=== PATIENT | female | born 1950 | race African-American/Black ===

== ENCOUNTER 2020-07-10 14:31 | Inpatient (IN) | payer MEDICARE, BC ==
[~2020-07-10] VITALS: Ht 149.9 cm; Wt 104.0 kg
--- NOTE | 2020-07-10 14:35 | NUR ---
pt bib private ambulance from residence, on 5150 hold, dts, dto. pt on ra 91%. placed the pt on oxygen improved it to 98%. pt easily agitated, confused. er at bedside.
[2020-07-10 15:05] LABS: BASOPHILS % (AUTO) 0.3 % (0.0-2.0); EOSINOPHILS # (AUTO) 0.1 K/uL (0.0-0.7); EOSINOPHILS % (AUTO) 0.6 % (0.0-7.0); HEMATOCRIT 42.3 % (31.2-41.9); LYMPHOCYTES # (AUTO) 1.9 K/uL (20.0-40.0); LYMPHOCYTES % (AUTO) 13.5 % (20.5-51.5); MEAN CORPUSCULAR HEMOGLOBIN 29.5 uug (24.7-32.8); MEAN CORPUSCULAR HGB CONC 33 g/dL (32.3-35.6); MEAN CORPUSCULAR VOLUME 89.2 fL (75.5-95.3); MONOCYTES # (AUTO) 0.8 K/uL (2.0-10.0); MONOCYTES % (AUTO) 5.6 % (0.0-11.0); NEUTROPHILS # (AUTO) 11.2 K/uL (1.8-8.9); PLATELET COUNT (AUTO) 273 K/uL (179-408); RED BLOOD CELL COUNT(AUTO) 4.74 MIL/uL (3.63-4.92)
[2020-07-10] MEDS: ALBUTEROL SULFATE 2.5 MG/3 ML NEBU NEB SCH (15:08)
[2020-07-10] MEDS: IPRATROPIUM BROMIDE 0.5 MG/2.5 ML NEBU NEB SCH (15:08)
[2020-07-10 15:10] LABS: CARBON DIOXIDE 32 mmol/L (21-32); CHLORIDE 97 mmol/L (98-107); CREATININE 1.4 mg/dL (0.6-1.3); GLUCOSE 136 mg/dL (74-106); POTASSIUM 3.3 mmol/L (3.5-5.1); UREA NITROGEN, BLOOD 20 mg/dL (7-18)
[2020-07-10] MEDS ORDERED: ALBUTEROL SULFATE 2.5 MG/3 ML NEBU ONE (15:10)
[2020-07-10] MEDS ORDERED: IPRATROPIUM BROMIDE 0.5 MG/2.5 ML NEBU ONE (15:10)
--- NOTE | 2020-07-10 15:10 | NUR ---
pt yelling, disturbing other pts, trying to walk out the er. comfort measures provided, md aware.
[2020-07-10 15:12] LABS: *BILIRUBIN,URIN NEGATIVE (NEGATIVE); *BLOOD, URINE 3+ (NEGATIVE); *CLARITY,URINE CLOUDY (CLEAR); *COLOR,URINE YELLOW (YELLOW); *KETONES,URINE NEGATIVE (NEGATIVE); *UROBILINOGEN,URINE 0.2 E.U./dl (NORMAL); LEUKOCYTE ESTERASE ,URINE 1+ (NEGATIVE); NITRITE, URINE POSITIVE (NEGATIVE); UGLUCOSE NEGATIVE (NEGATIVE)
[2020-07-10 15:16] LABS: ALANINE AMINOTRANSFERASE 34 U/L (14-59); ALKALINE PHOSPHATASE 124 U/L (50-136); ASPARTATE AMINOTRANSFERASE 58 U/L (15-37); BILIRUBIN,DIRECT 0.1 mg/dL (0.0-0.2); BILIRUBIN,TOTAL 0.4 mg/dL (0.2-1.0); ETHANOL < 3 MG/DL (0-0); TOTAL PROTEIN, SERUM 8.2 g/dL (6.4-8.2)
[2020-07-10 15:17] LABS: ACETAMINOPHEN < 2.0 ug/mL (10-30)
[2020-07-10 15:22] LABS: *AMPHETAMINE, URINE NEGATIVE (NEGATIVE); *CANNABINOID, URINE POSITIVE (NEGATIVE); *COCCAINE, URINE NEGATIVE (NEGATIVE); *OPIATE, URINE NEGATIVE (NEGATIVE); *PHENCYCLIDINE SCREEN,URINE NEGATIVE (NEGATIVE)
[2020-07-10] MEDS ORDERED: OLANZAPINE 10 MG VIAL IM ONE ×2 (15:30→15:31)
[2020-07-10] MEDS ORDERED: HALOPERIDOL LACTATE 5 MG/1 ML VIAL ONE (15:42)
[2020-07-10] MEDS ORDERED: HALOPERIDOL LACTATE 5 MG/1 ML VIAL IM ONE (15:45)
[2020-07-10] MEDS ORDERED: CEFTRIAXONE 1 G VIAL IM ONE (16:00)
--- NOTE | 2020-07-10 16:00 | NUR ---
pt off the nc to see how the pt does without oxygen.
[2020-07-10] MEDS ORDERED: LIDOCAINE HCL 1% 20 ML VIAL ONE (16:01)
[2020-07-10] MEDS ORDERED: CEFTRIAXONE 1 G VIAL ONE (16:01)
--- NOTE | 2020-07-10 16:05 | NUR ---
pt ra sat 96%. Dr. Jaffe medically cleared the pt.
--- NOTE | 2020-07-10 16:30 | NUR ---
PT AMBULATED IN ROOM BACK AND FORTH TO BATHROOM AND BED TO CHAIR.
--- NOTE | 2020-07-10 16:58 | NUR ---
PT IN BED, RESTING.
[2020-07-10 17:00] VITALS: BP 116/59
[2020-07-10] MEDS ORDERED: MAG HYDROX/AL HYDROX/SIMETH 30 ML LIQUID UDC PO PRN (17:30)
[2020-07-10] MEDS ORDERED: LORAZEPAM 0.5 MG TABLET PO PRN (17:30)
[2020-07-10] MEDS ORDERED: ACETAMINOPHEN 325 MG TABLET PO PRN (17:30)
[2020-07-10] MEDS ORDERED: MAGNESIUM HYDROXIDE 30 ML LIQUID UDC PO PRN (17:30)
[2020-07-10 18:16] LABS: BACTERIA,URINE MANY /HPF (NONE SEEN); SQUAMOUS EPITHELIAL CELL,UR MODERATE /HPF (NONE SEEN)
[2020-07-10] MEDS ORDERED: BLOOD SUGAR DIAGNOSTIC 1 EACH STRIP VI ONE (18:30)
--- NOTE | 2020-07-10 18:47 | NUR ---
Received this admission from ER, awake, alert, oriented x 3, drowsy but easily aroused, follows command, with appropriate response. Initially calm but became restless and anxious. Redirected and Ativan po given.
[2020-07-10] MEDS ORDERED: CLONIDINE HCL 0.1 MG TABLET PO PRN (19:45)
[2020-07-10] MEDS ORDERED: DEXTROSE 50% 50 ML DISP.SYRIN IV PRN (19:45)
[2020-07-10 20:35] VITALS: BP 128/65
[2020-07-10] MEDS: BLOOD SUGAR DIAGNOSTIC 1 EACH STRIP VI SCH (21:00)
[2020-07-10] MEDS ORDERED: SULFAMETH/TRIMETH 800/160 MG TABLET PO SCH (21:00)
[2020-07-10] MEDS: ZOLPIDEM 5 MG TABLET PO PRN (21:04)
[2020-07-10] MEDS: NITROFURANTOIN/NITROFURAN MAC 100 MG CAPSULE PO SCH (21:04)
[2020-07-11] MEDS: ALBUTEROL SULFATE 2.5 MG/3 ML NEBU NEB SCH ×4 (02:03→20:03)
[2020-07-11] MEDS: IPRATROPIUM BROMIDE 0.5 MG/2.5 ML NEBU NEB SCH ×4 (02:03→20:03)
--- NOTE | 2020-07-11 05:55 | NUR ---
Patient was asleep in the bed when she was received. Sleep apnea noted. Patient woke up laughing, the yelling for someone, when asked who, the patient stated " They are , they are in my heart" then proceeded to bang on her chest with her hands. Lead Database Administrator was able to redirect and distract patient but unable to engage in any meaningful conversation d/t the patient being confused and labile. At one point, patient was getting up and down frequently from the bed and repetitively asking for her toenails to be trimmed. This patient did take medications and received a breathing treatment for audible wheezing. B/P was normal , HR was slightly elevated which was noted by the Doctor. Total sleep hours are 5.45. Patient is up early and agreeable to take a shower. No acute issues at this time. Continuing to monitor for safety and behavior escalation.
[2020-07-11] MEDS: BLOOD SUGAR DIAGNOSTIC 1 EACH STRIP VI SCH ×4 (06:29→20:06)
[2020-07-11 07:30] VITALS: BP 116/83
[2020-07-11] MEDS: NITROFURANTOIN/NITROFURAN MAC 100 MG CAPSULE PO SCH ×2 (08:14→20:06)
[2020-07-11] MEDS: NICOTINE 14 MG/24HR PATCH TD SCH (08:14)
[2020-07-11 08:16] LABS: BILIRUBIN,TOTAL 0.4 mg/dL (0.2-1.0); CREATININE 1.4 mg/dL (0.6-1.3); POTASSIUM 3.1 mmol/L (3.5-5.1)
[2020-07-11 08:24] LABS: MAGNESIUM 2.8 mg/dL (1.8-2.4); PHOSPHOROUS 3.1 mg/dL (2.5-4.9); THYROID STIMULATING HORMONE 0.774 mIU/mL (0.358-3.740)
[2020-07-11] MEDS: INSULIN REGULAR, HUMAN 300 UNIT/3 ML VIAL SQ PRN ×3 (09:11→20:08)
[2020-07-11] MEDS: LORAZEPAM 1 MG TABLET PO PRN ×2 (09:13→16:10)
[2020-07-11] MEDS ORDERED: POTASSIUM CHLORIDE 20 MEQ TAB.PRT.SR PO ONE (10:00)
[2020-07-11 16:00] VITALS: BP 125/83
[2020-07-11] MEDS: risperiDONE 2 MG TABLET PO SCH (16:10)
--- NOTE | 2020-07-11 18:02 | NUR ---
Patient in bed cooperative upon assessment, engaged in a conversation. After lunch patient started to get anxious while walking in the hallway. She said she wants to call her brother. Telephone is provided to her. All needs met in a timely manner. No s/sx of hyper and hypoglycemia. All due meds given per MD order. No s/sx of distress.
[2020-07-11 19:55] VITALS: BP 121/64
[2020-07-11] MEDS: ZOLPIDEM 5 MG TABLET PO PRN (23:27)
[2020-07-12] MEDS: IPRATROPIUM BROMIDE 0.5 MG/2.5 ML NEBU NEB SCH ×4 (01:34→19:54)
[2020-07-12] MEDS: ALBUTEROL SULFATE 2.5 MG/3 ML NEBU NEB SCH ×4 (01:34→19:54)
[2020-07-12] MEDS: LORAZEPAM 1 MG TABLET PO PRN (02:09)
--- NOTE | 2020-07-12 05:35 | NUR ---
Received patient in bed last night, awake and asking for food. After a short time, patient was up in the mcdaniel pacing the floor with a FWW. Patient has audible wheezing and creative writer noticed that when patient would try to sleep she has such severe sleep apnea , that it constantly would wake the patient up. Total sleep hours were only 3.00 . Respiratory treatments were given 2 times during the shift. Patient seemed groggy and restless throughout the night . B/P 136/80 , pulse was 122 and o2 sat 94% on room air when checked this am. Patients HR has remained high since admission. The doctors are aware. Plan to transfer patient to medical floor for c pap at night if the doctors agree. UA sent to lab this am per order. Patient slept in Yuki chair at the station for close monitoring. Bellman Driver will continue to assess patients status and endorse to the on coming shift.
[2020-07-12 05:54] LABS: *BILIRUBIN,URIN NEGATIVE (NEGATIVE); *CLARITY,URINE CLEAR (CLEAR); *COLOR,URINE YELLOW (YELLOW); *KETONES,URINE NEGATIVE (NEGATIVE); *UROBILINOGEN,URINE 0.2 E.U./dl (NORMAL); LEUKOCYTE ESTERASE ,URINE TRACE (NEGATIVE); NITRITE, URINE NEGATIVE (NEGATIVE); PH,URINE 6.5 (5.0-8.0); UGLUCOSE NEGATIVE (NEGATIVE)
[2020-07-12 06:05] LABS: *BLOOD, URINE TRACE (NEGATIVE)
[2020-07-12 06:08] LABS: BACTERIA,URINE NONE SEEN /HPF (NONE SEEN); SQUAMOUS EPITHELIAL CELL,UR MODERATE /HPF (NONE SEEN); WBC,URINE 0-3 /HPF (0-3)
[2020-07-12 06:08] LABS: *CREATININE,URINE 44.6 mg/dL (30-125); *URINE TOTAL PROTEIN RANDOM 18.8 mg/dL (<150/24HR)
[2020-07-12] MEDS: BLOOD SUGAR DIAGNOSTIC 1 EACH STRIP VI SCH ×4 (06:18→20:24)
[2020-07-12 07:30] VITALS: BP 128/84
--- NOTE | 2020-07-12 07:30 | NUR ---
Patient received in [facility] chair. Pt. was being aggressive, yelling and shouting at staff. She was trying to get out of the chair. Redirected and bargained for more cooperated behavior to be released from chair. The patient complied. Safety precaution implemented . Will continue to monitor.
[2020-07-12 07:52] LABS: BASOPHILS % (AUTO) 0.4 % (0.0-2.0); EOSINOPHILS # (AUTO) 0.5 K/uL (0.0-0.7); EOSINOPHILS % (AUTO) 4.1 % (0.0-7.0); HEMATOCRIT 41.7 % (31.2-41.9); HEMOGLOBIN 13.7 g/dL (10.9-14.3); LYMPHOCYTES # (AUTO) 3.3 K/uL (20.0-40.0); LYMPHOCYTES % (AUTO) 29.2 % (20.5-51.5); MEAN CORPUSCULAR HEMOGLOBIN 29.6 uug (24.7-32.8); MEAN CORPUSCULAR HGB CONC 33 g/dL (32.3-35.6); MEAN CORPUSCULAR VOLUME 89.9 fL (75.5-95.3); MONOCYTES # (AUTO) 0.7 K/uL (2.0-10.0); MONOCYTES % (AUTO) 6.7 % (0.0-11.0); NEUTROPHILS # (AUTO) 6.7 K/uL (1.8-8.9); NEUTROPHILS % (AUTO) 59.6 % (38.5-71.5); PLATELET COUNT (AUTO) 303 K/uL (179-408); RED BLOOD CELL COUNT(AUTO) 4.64 MIL/uL (3.63-4.92); WHITE BLOOD COUNT (AUTO) 11.2 K/uL (3.8-11.8)
[2020-07-12 08:07] LABS: BILIRUBIN,TOTAL 0.4 mg/dL (0.2-1.0); CREATININE 1.2 mg/dL (0.6-1.3); MAGNESIUM 2.9 mg/dL (1.8-2.4); PHOSPHOROUS 3.5 mg/dL (2.5-4.9); POTASSIUM 3.9 mmol/L (3.5-5.1); TOTAL PROTEIN, SERUM 7.7 g/dL (6.4-8.2)
[2020-07-12] MEDS: NICOTINE 14 MG/24HR PATCH TD SCH (08:43)
[2020-07-12] MEDS: risperiDONE 2 MG TABLET PO SCH ×2 (08:43→16:34)
[2020-07-12] MEDS: NITROFURANTOIN/NITROFURAN MAC 100 MG CAPSULE PO SCH ×2 (08:43→20:24)
[2020-07-12] MEDS: INSULIN REGULAR, HUMAN 300 UNIT/3 ML VIAL SQ PRN ×2 (08:46→20:27)
[2020-07-12 15:31] VITALS: BP 116/66
--- NOTE | 2020-07-12 19:00 | NUR ---
RECEIVED PT AWAKE, ALERT AND ORIENTEDX3. PT OBSERVED COUGHING. PT IN NO ACUTE DISTRESS. 1:1 SITTER FOR SAFETY. SAFETY AND COMFORT PROVIDED. WILL CONTINUE TO MONITOR.
--- NOTE | 2020-07-12 19:12 | NUR ---
NOTIFY MED SURG NURSE THAT PT IS COUGHING. BETSY DOMESTIC MAID ORDERED ROBITUSSIN DM 5ML Q4PRN.
[2020-07-12] MEDS ORDERED: GUAIFENESIN/DEXTROMETHORPHAN 5 ML UDC PO PRN (19:15)
[2020-07-12 20:04] VITALS: BP 103/69
[2020-07-12] MEDS: MELATONIN 3 MG TABLET PO PRN (22:14)
[2020-07-13] MEDS: IPRATROPIUM BROMIDE 0.5 MG/2.5 ML NEBU NEB SCH ×4 (01:03→19:54)
[2020-07-13] MEDS: ALBUTEROL SULFATE 2.5 MG/3 ML NEBU NEB SCH ×4 (01:04→19:54)
[2020-07-13 05:48] VITALS: BP 106/78
--- NOTE | 2020-07-13 06:18 | NUR ---
PT SLEPT 4.50 H. SITTER AT BEDSIDE. PT IN NO ACUTE DISTRESS. PT KEEPS ON REMOVING HER CPAP. PT IN NO ACUTE DISTRESS. PT NEEDS REDIRECTION AND SET LIMITS. SAFETY AND COMFORT PROVIDED. WILL CONTINUE TO ENDORSE TO INCOMING NURSE FOR CONTINUITY OF CARE.
[2020-07-13] MEDS: BLOOD SUGAR DIAGNOSTIC 1 EACH STRIP VI SCH ×4 (06:36→20:48)
--- NOTE | 2020-07-13 07:50 | NUR ---
Alert and oriented, noted walking around the room, responsive to stimuli, talkative. No respiratory distress noted. Patient verbalized she's a little anxious, distracted and redirected patient. She talked about her dtr and how she came to be here. Patient is cooperative at this time. Denies pain. Safety measures maintained. Sitter at bedside. Needs attended. Will continue to monitor.
[2020-07-13 08:00] VITALS: BP 125/77
[2020-07-13] MEDS: NITROFURANTOIN/NITROFURAN MAC 100 MG CAPSULE PO SCH ×2 (08:16→20:44)
[2020-07-13] MEDS: NICOTINE 14 MG/24HR PATCH TD SCH (08:16)
[2020-07-13] MEDS: risperiDONE 2 MG TABLET PO SCH ×2 (08:16→17:36)
[2020-07-13] MEDS: INSULIN REGULAR, HUMAN 300 UNIT/3 ML VIAL SQ PRN (08:24)
--- NOTE | 2020-07-13 09:21 | NUR ---
Firearms Report: Child Welfare Caseworker completed and submitted a [employer] firearms report for 5150 grave disability certification. A copy of report has been placed in patient chart.
--- NOTE | 2020-07-13 11:29 | NUR ---
Initial Discharge Plan: Patient currently resides alone at [address] [place] [id number]; ([phone]). Patient would want to return back home upon discharge. Patient's brother is involved in patient's care. This SW contacted patient's brother Christopher ([phone]) to discuss treatment and discharge plan, however, was unavailable at this time. SW will work with the doctor, treatment team, and patient to coordinate proper discharge plan.
--- NOTE | 2020-07-13 11:30 | NUR ---
Family Contact: This SW contacted patient's brother Christopher ([phone]) to discuss treatment and discharge plan, however, was unavailable at this time.
--- NOTE | 2020-07-13 11:30 | NUR ---
Substance Abuse Intervention: Patient was provided with a brief substance abuse intervention and referred to [facility] ([phone]), [facility] ([phone]), and [facility] ([phone]). Patient stated that she smokes tobacco, marijuana, and reported that she drinks alcohol.
--- NOTE | 2020-07-13 11:55 | NUR ---
Family Contact: This SW contacted patient's brother Christopher ([phone]) and discussed treatment and discharge plan. This SW gathered collateral.
[2020-07-13 13:06] LABS: A/G RATIO 0.9 (0.7-1.7); ALBUMIN 3.2 g/dL (2.9-4.4); ALPHA-1-GLOBULIN 0.3 g/dL (0.0-0.4); BETA GLOBULIN 1.2 g/dL (0.7-1.3); GAMMA GLOBULIN 1.2 g/dL (0.4-1.8); GLOBULIN, TOTAL 3.6 g/dL (2.2-3.9); M-SPIKE Not Observed g/dL (Not Observed)
--- NOTE | 2020-07-13 13:36 | NUR ---
Patient went to activities with sitter. In no acute distress. No complaints.
[2020-07-13 15:31] VITALS: BP 122/79
[2020-07-13] MEDS: VITAMINS A AND D OINT TP SCH (17:58)
--- NOTE | 2020-07-13 18:59 | NUR ---
PATIENT IN BED, WATCHING TV. NO AGGRESSIVE OR VIOLENT BEHAVIOR NOTED. PATIENT WAS COOPERATIVE. DUE MEDS GIVEN AND TOLERATED. DENIES PAIN. IN NO ACUTE DISTRESS. SAFETY MEASURES MAINTAINED. BED LOW AND LOCKED. KEPT COMFORTABLE. NEEDS ATTENDED. WILL CONTINUE TO MONITOR.
[2020-07-13 20:53] VITALS: BP 131/80
[2020-07-13] MEDS: MELATONIN 3 MG TABLET PO PRN (22:58)
[2020-07-14] MEDS: IPRATROPIUM BROMIDE 0.5 MG/2.5 ML NEBU NEB SCH ×5 (01:24→20:14)
[2020-07-14] MEDS: ALBUTEROL SULFATE 2.5 MG/3 ML NEBU NEB SCH ×5 (01:24→20:14)
--- NOTE | 2020-07-14 05:58 | NUR ---
PATIENT ASLEEP IN BED. SITTER AT BEDSIDE. PT. SLEPT 8 HOURS AND 45 MINUTES. WILL CONTINUE TO MONITOR AND ASSESS.
[2020-07-14] MEDS: BLOOD SUGAR DIAGNOSTIC 1 EACH STRIP VI SCH ×4 (06:16→20:30)
[2020-07-14] MEDS: NITROFURANTOIN/NITROFURAN MAC 100 MG CAPSULE PO SCH ×2 (07:58→20:26)
[2020-07-14] MEDS: NICOTINE 14 MG/24HR PATCH TD SCH (07:58)
[2020-07-14] MEDS: risperiDONE 2 MG TABLET PO SCH ×2 (07:58→16:51)
[2020-07-14] MEDS: VITAMINS A AND D OINT TP SCH ×2 (07:59→16:52)
[2020-07-14 08:00] VITALS: BP 126/65
[2020-07-14 09:43] LABS: BASOPHILS # (AUTO) 0.1 K/uL (0.0-8.0); BASOPHILS % (AUTO) 0.6 % (0.0-2.0); EOSINOPHILS # (AUTO) 0.4 K/uL (0.0-0.7); EOSINOPHILS % (AUTO) 3.7 % (0.0-7.0); HEMATOCRIT 39.2 % (31.2-41.9); HEMOGLOBIN 13.1 g/dL (10.9-14.3); LYMPHOCYTES # (AUTO) 3.1 K/uL (20.0-40.0); MEAN CORPUSCULAR HEMOGLOBIN 30.3 uug (24.7-32.8); MEAN CORPUSCULAR HGB CONC 34 g/dL (32.3-35.6); MEAN CORPUSCULAR VOLUME 90.6 fL (75.5-95.3); MONOCYTES # (AUTO) 0.7 K/uL (2.0-10.0); MONOCYTES % (AUTO) 6.6 % (0.0-11.0); NEUTROPHILS # (AUTO) 6.1 K/uL (1.8-8.9); NEUTROPHILS % (AUTO) 59.1 % (38.5-71.5); PLATELET COUNT (AUTO) 301 K/uL (179-408); RED BLOOD CELL COUNT(AUTO) 4.33 MIL/uL (3.63-4.92); WHITE BLOOD COUNT (AUTO) 10.3 K/uL (3.8-11.8)
[2020-07-14 09:49] LABS: CREATININE 1.3 mg/dL (0.6-1.3); POTASSIUM 4.5 mmol/L (3.5-5.1)
[2020-07-14 12:00] VITALS: BP 113/61
[2020-07-14] MEDS ORDERED: POLYVINYL ALCOHOL OPHT DROPS 15 ML BOTTLE EACHEYE PRN (12:15)
--- NOTE | 2020-07-14 19:30 | NUR ---
Received pt sitting on the chair, verbally responsive and cooperative with care. Denies any suicidal ideation, pain or discomfort. No s/s of respiratory distress. Sitter at bedside, safety measures initiated, call light within reach. will continue to monitor.
[2020-07-14 20:13] VITALS: BP 105/56
[2020-07-14] MEDS: INSULIN REGULAR, HUMAN 300 UNIT/3 ML VIAL SQ PRN (20:32)
[2020-07-14] MEDS: MELATONIN 3 MG TABLET PO PRN (23:28)
[2020-07-15] MEDS: IPRATROPIUM BROMIDE 0.5 MG/2.5 ML NEBU NEB SCH ×4 (01:36→19:43)
[2020-07-15] MEDS: ALBUTEROL SULFATE 2.5 MG/3 ML NEBU NEB SCH ×4 (01:36→19:43)
--- NOTE | 2020-07-15 02:35 | NUR ---
PT PLACED ON CPAP 8CM, 30% APPROX, 23:25, WITH FULL LARGE MASK, DOING WELL, Brody MANCUSO RCP Addendum: 07/15/20 at 0236 by YASHIRA MANCUSO RT Amended: Links added.
[2020-07-15 04:00] VITALS: BP 134/81
--- NOTE | 2020-07-15 05:43 | NUR ---
Pt slept for 3.5 hours, no signs of respiratory distress, denies any pain or discomfort. Denies suicidal ideation. Medications tolerated well. Safety measures maintained at all times, call light within reach, will continue to monitor.
[2020-07-15] MEDS: BLOOD SUGAR DIAGNOSTIC 1 EACH STRIP VI SCH ×4 (06:49→21:16)
[2020-07-15] MEDS: INSULIN REGULAR, HUMAN 300 UNIT/3 ML VIAL SQ PRN ×3 (07:08→20:16)
[2020-07-15 07:23] VITALS: BP 136/78
[2020-07-15] MEDS: NITROFURANTOIN/NITROFURAN MAC 100 MG CAPSULE PO SCH (08:03)
[2020-07-15] MEDS: risperiDONE 2 MG TABLET PO SCH ×2 (08:03→16:23)
[2020-07-15] MEDS: VITAMINS A AND D OINT TP SCH ×2 (08:03→16:24)
[2020-07-15] MEDS: NICOTINE 14 MG/24HR PATCH TD SCH (08:03)
--- NOTE | 2020-07-15 10:08 | NUR ---
[facility] PC Hearing: Patient had 5250 probable cause hearing today and it was upheld for grave disability.
--- NOTE | 2020-07-15 10:42 | NUR ---
[facility] SNF Referral: [facility] faxed patient's referral packet for review and placement at: [facility] attention to [facility] (fax: [phone]) [facility] attention to [facility] (fax: [phone]) Addendum: 07/15/20 at 1249 by KRZYSZTOF KUMAR Patient is accepted at [facility] for placement, Spoke with [facility].
--- NOTE | 2020-07-15 14:02 | NUR ---
[facility] Family Contact: [facility]ALI left a voicemail for patients brother Christopher ([phone]) informing of discharge plan for tomorrow to [facility] [place].
--- NOTE | 2020-07-15 14:02 | NUR ---
[facility] SNF Contact: [facility]I faxed patient's referral packet and MD order for CPAP machine with instructions to [facility]'s SNF attention to [facility] (fax: [phone]). [facility] confirmed she received the order and stated she will order the machine and it will be ready for tomorrow when the patient arrives to their facility.
[2020-07-15 16:05] VITALS: BP 133/71
[2020-07-15 20:15] VITALS: BP 129/70
[2020-07-16] MEDS: IPRATROPIUM BROMIDE 0.5 MG/2.5 ML NEBU NEB SCH ×3 (01:05→13:30)
[2020-07-16] MEDS: ALBUTEROL SULFATE 2.5 MG/3 ML NEBU NEB SCH ×3 (02:06→13:30)
[2020-07-16 04:00] VITALS: BP 130/71
--- NOTE | 2020-07-16 05:14 | NUR ---
PATIENT ALERT ORIENTED, NO COMPLAIN OF PAIN. PATIENT CALM COOPERATIVE WITH CARE, SLEPT 7 HRS, AND NO PRN MEDS GIVEN, CONT 1;1 SITTER FOR SAFETY. CONT TO MONITOR.
[2020-07-16] MEDS: BLOOD SUGAR DIAGNOSTIC 1 EACH STRIP VI SCH ×2 (06:10→11:35)
[2020-07-16 07:35] VITALS: BP 127/81
[2020-07-16] MEDS: INSULIN REGULAR, HUMAN 300 UNIT/3 ML VIAL SQ PRN (07:55)
--- NOTE | 2020-07-16 08:06 | NUR ---
[facility] Discharge Note: Patient will be discharged to [facility] [address] [facility] [address] ([phone]). Patient will be provided ambulance transportation at 1PM. [facility]I spoke with [facility] meeting coordinator at the facility ([phone]) who confirmed patient is accepted at facility. Patient is aware and agreeable with discharge plans. Patient is alert and oriented x4, is unable to plan for self-care, however, is willing to accept care at [facility]. Patient denies any suicidal or homicidal ideation. Patient will follow-up at the facility with Dr. Villanueva Psychiatrist and Dr. [facility]. Patient presents with euthymic mood and congruent affect. Patient was provided referrals to the following substance abuse programs for Cannabis, Tobacco and Alcohol addiction: [facility] ([phone]); [facility] [address] [place] [address] ([phone]); [facility] [address] [place] [address] ([phone]); [facility] ([phone]); [facility] ([phone]); [facility] ([phone]); [facility] ([phone]). Patient presented with euthymic mood and congruent affect. Patients brother Christopher ([phone]) is made aware of discharge plan.
[2020-07-16] MEDS: NICOTINE 14 MG/24HR PATCH TD SCH (08:33)
[2020-07-16] MEDS: VITAMINS A AND D OINT TP SCH (08:33)
[2020-07-16] MEDS: risperiDONE 2 MG TABLET PO SCH (08:33)
--- NOTE | 2020-07-16 15:03 | NUR ---
Patient discharged to [facility] at [address] [place] [address] ([phone]) via [facility] transport. Patient awake and oriented x4. On room air. no signs of acute distress. vital signs stable. patient denies SI/HI. Patient denies AH/ VH. Patient denies any pain/ discomfort at time of discharge. Discharge documentation explained and signed. Belongings accounted for and belongings list signed. Patient will follow up at the facility with Dr. Yoni Villanueva (psychiatrist) and Dr. Camden Duncan (video game script writer). Patient presents with euthymic mood an congruent affect. Patient was provided referrals to the following substance abuse programs for Cannabis, Tobacco and alcohol addiction: [facility] ([phone]); [facility] [address] [place] [address] ([phone]); [address] [address]); [facility] ([phone]); [facility] ([phone]); [facility] ([phone]). Patient's brother Christopher ([phone]) is made aware of discharge plan. ID band removed. Patient left via [facility] gurney. Nursing report given to MELLO Cuellar of [facility].
== END 2020-07-16 14:55 | DRG 885 ==
LOC: ER 14:31 → GPS 17:02 → MEDSURG3 07-12 09:59 → GPSOV3 07-12 11:04
PROVIDERS: ADMIT Psychiatry & Neurology Psychiatry; ATTEND Nurse Practitioner Acute Care
PROC: 0HBRXZZ Excision of Toe Nail, External Approach (ICD-10-PCS; principal; 2020-07-13)
DX: F29 Unspecified psychosis not due to a substance or known physiological condition (principal); N17.0 Acute kidney failure with tubular necrosis; D68.69 Other thrombophilia; N39.0 Urinary tract infection, site not specified; E44.0 Moderate protein-calorie malnutrition; Z68.42 Body mass index [BMI] 45.0-49.9, adult; F12.10 Cannabis abuse, uncomplicated; E11.65 Type 2 diabetes mellitus with hyperglycemia; E11.40 Type 2 diabetes mellitus with diabetic neuropathy, unspecified; E87.6 Hypokalemia; E83.41 Hypermagnesemia; Z73.6 Limitation of activities due to disability; D72.829 Elevated white blood cell count, unspecified; B96.89 Other specified bacterial agents as the cause of diseases classified elsewhere; F20.0 Paranoid schizophrenia; I12.9 Hypertensive chronic kidney disease with stage 1 through stage 4 chronic kidney disease, or unspecified chronic kidney disease; N18.9 Chronic kidney disease, unspecified; F39 Unspecified mood [affective] disorder; G47.30 Sleep apnea, unspecified; L85.3 Xerosis cutis; M79.672 Pain in left foot; M79.671 Pain in right foot; L60.3 Nail dystrophy; Z20.822 Contact with and (suspected) exposure to COVID-19; F17.210 Nicotine dependence, cigarettes, uncomplicated; F31.9 Bipolar disorder, unspecified; Z88.1 Allergy status to other antibiotic agents; Z79.4 Long term (current) use of insulin
CPT/HCPCS: 36415; 71045; 76770; 83735; 83970; 84100; 84155; 84156; 84165; 84300; 84443; 85025; 87086; 93005; 94640; 94660; A4663; G0480; J0696; J1630; J1815; J2358; J3490; J3590

== ENCOUNTER 2020-07-25 10:14 | Emergency (ER) | payer MEDICARE, BC ==
[~2020-07-25] VITALS: Ht 149.9 cm; Wt 106.6 kg
--- NOTE | 2020-07-25 10:23 | NUR ---
Patient [facility] by [facility] for agitation [facility] psych unit
--- NOTE | 2020-07-25 10:35 | NUR ---
Spoke with Dafne who was in the ER regarding psych eval for the pt. She stated to call her when the pt is medically clear and she will come back.
--- NOTE | 2020-07-25 10:40 | NUR ---
Patient noted giving urine sample at this time
[2020-07-25 10:52] LABS: BASOPHILS % (AUTO) 0.5 % (0.0-2.0); EOSINOPHILS # (AUTO) 0.3 K/uL (0.0-0.7); EOSINOPHILS % (AUTO) 3.3 % (0.0-7.0); HEMOGLOBIN 13.3 g/dL (10.9-14.3); LYMPHOCYTES # (AUTO) 3.4 K/uL (20.0-40.0); LYMPHOCYTES % (AUTO) 35.7 % (20.5-51.5); MEAN CORPUSCULAR HGB CONC 33 g/dL (32.3-35.6); MONOCYTES # (AUTO) 0.7 K/uL (2.0-10.0); MONOCYTES % (AUTO) 7.3 % (0.0-11.0); NEUTROPHILS # (AUTO) 5.1 K/uL (1.8-8.9); NEUTROPHILS % (AUTO) 53.2 % (38.5-71.5); PLATELET COUNT (AUTO) 299 K/uL (179-408); RED BLOOD CELL COUNT(AUTO) 4.45 MIL/uL (3.63-4.92); WHITE BLOOD COUNT (AUTO) 9.5 K/uL (3.8-11.8)
[2020-07-25 11:03] LABS: *BILIRUBIN,URIN NEGATIVE (NEGATIVE); *CLARITY,URINE CLEAR (CLEAR); *COLOR,URINE YELLOW (YELLOW); *KETONES,URINE NEGATIVE (NEGATIVE); *UROBILINOGEN,URINE 0.2 E.U./dl (NORMAL); LEUKOCYTE ESTERASE ,URINE TRACE (NEGATIVE); NITRITE, URINE NEGATIVE (NEGATIVE); UGLUCOSE NEGATIVE (NEGATIVE)
[2020-07-25 11:04] LABS: *BLOOD, URINE TRACE (NEGATIVE)
[2020-07-25 11:05] LABS: ETHANOL < 3 MG/DL (0-0)
[2020-07-25 11:13] LABS: *AMPHETAMINE, URINE NEGATIVE (NEGATIVE); *CANNABINOID, URINE POSITIVE (NEGATIVE); *COCCAINE, URINE NEGATIVE (NEGATIVE); *OPIATE, URINE NEGATIVE (NEGATIVE); *PHENCYCLIDINE SCREEN,URINE NEGATIVE (NEGATIVE)
[2020-07-25 11:16] LABS: ALANINE AMINOTRANSFERASE 31 U/L (14-59); ALKALINE PHOSPHATASE 121 U/L (50-136); ASPARTATE AMINOTRANSFERASE 17 U/L (15-37); BILIRUBIN,DIRECT 0.1 mg/dL (0.0-0.2); BILIRUBIN,TOTAL 0.3 mg/dL (0.2-1.0); CARBON DIOXIDE 34 mmol/L (21-32); CHLORIDE 100 mmol/L (98-107); CREATININE 1.1 mg/dL (0.6-1.3); GLUCOSE 112 mg/dL (74-106); POTASSIUM 3.9 mmol/L (3.5-5.1); TOTAL PROTEIN, SERUM 7.5 g/dL (6.4-8.2)
[2020-07-25 11:25] LABS: UREA NITROGEN, BLOOD 21 mg/dL (7-18)
[2020-07-25 11:26] LABS: ACETAMINOPHEN < 2.0 ug/mL (10-30)
[2020-07-25] MEDS ORDERED: MELA3TAB41 PO (11:53)
[2020-07-25] MEDS ORDERED: SEMA0.25 SQ (11:53)
[2020-07-25] MEDS ORDERED: LOSA1TAB39 PO (11:53)
[2020-07-25] MEDS ORDERED: ERGO500040 PO (11:53)
[2020-07-25] MEDS ORDERED: RISP2TAB5 PO (11:53)
[2020-07-25] MEDS ORDERED: NA P133E RC (11:53)
[2020-07-25] MEDS ORDERED: CETI-90 PO (11:53)
[2020-07-25] MEDS ORDERED: INSU100V28 SQ (11:53)
[2020-07-25] MEDS ORDERED: ALBU8.5H8 IH (11:53)
[2020-07-25] MEDS ORDERED: ATOR40TA PO (11:53)
[2020-07-25] MEDS ORDERED: ROBITUSSIN DM PO (11:53)
[2020-07-25] MEDS ORDERED: LORA-259 PO (11:53)
[2020-07-25] MEDS ORDERED: BISA10SU61 RC (11:53)
[2020-07-25] MEDS ORDERED: MAGN400O6 PO (11:53)
[2020-07-25] MEDS ORDERED: ACET-2154 PO (11:53)
[2020-07-25] MEDS ORDERED: CLON0.1T PO (11:53)
[2020-07-25] MEDS ORDERED: NICO-671 TD (11:53)
[2020-07-25] MEDS ORDERED: MAG355OR18 PO (11:53)
[2020-07-25] MEDS ORDERED: DEXT15DR6 EACHEYE (11:53)
--- NOTE | 2020-07-25 12:29 | NUR ---
Patient is eating lunch with good appetite, NAD.
--- NOTE | 2020-07-25 12:45 | NUR ---
Per Dafne and pt to be transfered back to her SNF ( [address] ). Called [facility] for transport, eta 60-75 mins. Called SNF and spoke with Yaritza and notified her the pt will be d/c back to their facility. Dafne stated she also discussed plan of care with Yaritza ant the SNF via telephone.
[2020-07-25 13:40] VITALS: BP 135/85
--- NOTE | 2020-07-25 13:40 | NUR ---
[facility] 285 noted at bedside to arrange transport back to patients prior living arrangement ([facility]), no signs of acute distress noted, [facility] notied of patients planned arrival
[2020-07-25 13:51] LABS: RBC,URINE 0-3 /HPF (0-3); WBC,URINE 0-3 /HPF (0-3)
[2020-07-25 13:52] LABS: BACTERIA,URINE MODERATE /HPF (NONE SEEN); SQUAMOUS EPITHELIAL CELL,UR FEW /HPF (NONE SEEN)
== END 2020-07-25 13:41 ==
LOC: ER 10:14
DX: F31.9 Bipolar disorder, unspecified (principal); F20.9 Schizophrenia, unspecified; Z20.822 Contact with and (suspected) exposure to COVID-19; Z88.0 Allergy status to penicillin; Z88.2 Allergy status to sulfonamides; I44.30 Unspecified atrioventricular block
CPT/HCPCS: 36415; 71045; 85025; 87086; 93005; A4663; G0480